=== PATIENT | female | born 1985 | race Caucasian/White ===

== ENCOUNTER 2018-02-04 07:52 | Day surgery (SDC) | payer OTHER ==
[2018-02-04 09:30] LABS: ADD MAN DIFF? NO
[2018-02-04 09:39] LABS: BASOPHILS % 0.7 % (0.0-2.0); EOSINOPHILS % 0.7 % (0.0-7.0); HEMATOCRIT 37.3 % (37.0-47.0); HEMOGLOBIN 12.1 g/dl (12.0-16.0); LYMPHOCYTES # 1.6 10^3/ul (0.8-2.9); MEAN CORPUSCULAR HEMOGLOBIN 26.3 pg (29.0-33.0); MEAN CORPUSCULAR HGB CONC 32.4 g/dl (32.0-37.0); MEAN CORPUSCULAR VOLUME 81.1 fl (82.0-101.0); MEAN PLATELET VOLUME 10.8 fl (7.4-10.4); MONOCYTE # 0.3 10^3/ul (0.3-0.9); MONOCYTES % 5.9 % (0.0-11.0); NEUTROPHIL # 2.7 10^3/ul (1.6-7.5); NEUTROPHILS % 57.5 % (39.0-77.0); PLATELET COUNT 203 10^3/UL (140-415); RED CELL DISTRIBUTION WIDTH 12.9 % (11.5-14.5)
[2018-02-04 09:39] LABS: WHITE BLOOD COUNT 4.6 10^3/ul (4.8-10.8)
[2018-02-04] MEDS ORDERED: CEFAZOLIN 2 GM/50 ML (PMX) 50 ML IVPB (10:00)
[2018-02-04] MEDS ORDERED: DEXTROSE 5%-LR 1,000 ML IV (10:00)
[2018-02-04] MEDS: SOD CHLORIDE 0.9% 1,000 ML IV (10:07)
[2018-02-04] MEDS ORDERED: MIDAZOLAM 1 MG/ML 2 ML INJ IV (10:30)
[2018-02-04] MEDS ORDERED: FENTAnyl 50 MCG/ML VIAL IV ×2 (10:30)
[2018-02-04] MEDS ORDERED: HYDROmorphONE 1 MG/5 ML IV SYRINGE IV ×2 (10:30)
[2018-02-04] MEDS ORDERED: FENTAnyl 50 MCG/ML VIAL ×2 (10:31→11:45)
[2018-02-04] MEDS ORDERED: MIDAZOLAM 1 MG/ML 2 ML INJ (10:31)
[2018-02-04] MEDS ORDERED: PROPOFOL 20 ML (10:31)
[2018-02-04] MEDS ORDERED: ROCURONIUM 50 MG INJ (10:51)
[2018-02-04] MEDS ORDERED: LIDOCAINE 2% (SDV) 5 ML INJ (10:51)
[2018-02-04] MEDS ORDERED: DEXAMETHASONE 4 MG/ML 1 ML INJ (10:52)
[2018-02-04] MEDS ORDERED: ONDANSETRON 4 MG INJ (10:52)
[2018-02-04] MEDS ORDERED: FAMOTIDINE 20 MG INJ (10:52)
[2018-02-04] MEDS ORDERED: ACETAMINOPHEN 1000MG/100ML IV 100 ML (10:57)
[2018-02-04] MEDS: POLYMYXIN B 500000 UNIT INJ (11:04)
[2018-02-04] MEDS: BUPIVACAINE 0.25%/EPI (SDV) 30 ML INJ INJ (11:05)
[2018-02-04] MEDS ORDERED: BACITRACIN/POLYMYXIN 28.35 GM OINT TOP (11:07)
[2018-02-04] MEDS ORDERED: SUGAMMADEX SODIUM 200 MG/2 ML VIAL IV (11:12)
[2018-02-04] MEDS ORDERED: KETOROLAC 30 MG INJ (11:34)
[2018-02-04] MEDS ORDERED: morphine 2 MG INJ IV (12:00)
[2018-02-04] MEDS ORDERED: KETOROLAC 30 MG INJ IV (12:00)
[2018-02-04] MEDS ORDERED: IBUPROFEN 600 MG TAB PO (12:00)
[2018-02-04] MEDS ORDERED: HYDROCODONE/APAP (5/325) TAB PO ×2 (12:00)
[2018-02-04] MEDS ORDERED: ONDANSETRON 4 MG INJ IV (12:00)
[2018-02-04] MEDS: MEPERIDINE 25 MG INJ IV (12:11)
[2018-02-04] MEDS: ONDANSETRON 4 MG INJ IV (12:11)
== END 2018-02-04 14:19 | disposition home or self-care (01) ==
LOC: SDS 07:52
DX: L05.91 Pilonidal cyst without abscess (principal)
CPT/HCPCS: 11772; 85025; 88304